=== PATIENT | female | born 1970 | race Caucasian/White ===

== ENCOUNTER 2016-12-17 21:14 | Emergency (ER) | payer OTHER ==
[~2016-12-17] VITALS: Ht 154.9 cm; Wt 111.1 kg
[~2016-12-17 21:14] MED LIST: DIVA250E1 PO; LISI5TAB18 PO; METF500T PO; SERT50TA PO; SIMV10TA1 PO; SITA25TA3 PO
[2016-12-17 21:33] VITALS: BP 125/86
--- NOTE | 2016-12-17 22:11 | NUR ---
TO ER BED 5
--- NOTE | 2016-12-17 22:31 | NUR ---
Patient being evaluated by physician at bedside.
--- NOTE | 2016-12-17 22:32 | NUR ---
PT STATES SHE WAS DISCHARGED YESTERDAY FROM HOSPITAL IN [place] AND RICHARD GAVE HERSELF INSULIN FOR THE FIRST TIME AND WAS JUST FEELING UNSURE OF HOW SHE WAS SUPPOSE TO BE FEELING AFTERWARDS AND WANTED TO BE SEEN BY DR. SEGURA. HX: PT HAD MINI STROKE/DIABETIC PT DENIES N/V/D; SKIN IS PINK/WARM/DRY; AAOX4 WITH EVEN AND STEADY GAIT; LUNGS CLEAR BL; HR EVEN AND REGULAR; PT DENIES ANY FEVER, CP, SOB, OR COUGH AT THIS TIME; PATIENT STATES PAIN OF 0/10 AT THIS TIME; VSS; PATIENT POSITIONED FOR COMFORT; HOB ELEVATED; BEDRAILS UP X2; BED DOWN. ER MD MADE AWARE OF PT STATUS.
[2016-12-17 22:51] LABS: BASOPHILS # (AUTO) 0.1 K/uL (0.00-0.22); BASOPHILS % (AUTO) 1.4 % (0.0-2.0); EOSINOPHILS # (AUTO) 0.2 K/uL (0-0.4); EOSINOPHILS % (AUTO) 3.3 % (0.0-4.0); HEMATOCRIT 42.2 % (36-48); HEMOGLOBIN 13.3 g/dL (12.0-16.0); LYMPHOCYTES # (AUTO) 1.5 K/uL (2.5-16.5); MEAN CORPUSCULAR HEMOGLOBIN 25 pg (27-31); MEAN CORPUSCULAR HGB CONC 32 g/dL (33-37); MEAN CORPUSCULAR VOLUME 79 fL (80-94); MONOCYTES # (AUTO) 0.4 K/uL (0.8-1.0); MONOCYTES % (AUTO) 6.3 % (1.7-9.3); NEUTROPHILS # (AUTO) 4.2 K/uL (1.8-7.7); PLATELET COUNT (AUTO) 203 K/uL (140-450); RED BLOOD CELL COUNT(AUTO) 5.31 MIL/uL (4.20-5.40); RED CELL DISTRIBUTION WIDTH 15.3 % (11.6-13.7); WHITE BLOOD COUNT (AUTO) 6.5 K/uL (4.8-10.8)
[2016-12-17 23:01] LABS: ANION GAP 11.2 (8-16); CARBON DIOXIDE 29.6 mmol/L (21-32); CREATININE 1.2 mg/dL (0.6-1.3); POTASSIUM 4.8 mmol/L (3.5-5.1)
--- NOTE | 2016-12-17 23:30 | NUR ---
Patient discharged with v/s stable. Written and verbal after care instructions given and explained. Patient verbalized understanding. Ambulatory with steady gait. All questions addressed prior to discharge. Advised to follow up with PMD.
[2016-12-17 23:46] VITALS: BP 105/67
== END 2016-12-17 23:30 | disposition home or self-care (01) ==
LOC: MED 21:14
DX: E11.9 Type 2 diabetes mellitus without complications (principal); E66.01 Morbid (severe) obesity due to excess calories; I10 Essential (primary) hypertension; Z68.42 Body mass index [BMI] 45.0-49.9, adult; Z86.73 Personal history of transient ischemic attack (TIA), and cerebral infarction without residual deficits; Z79.899 Other long term (current) drug therapy
CPT/HCPCS: 36415; 80048; 85025; 99284

== ENCOUNTER 2018-09-09 11:23 | Emergency (ER) | payer OTHER ==
[~2018-09-09] VITALS: Ht 157.5 cm; Wt 108.5 kg
[~2018-09-09 11:23] MED LIST changes: +ARIP15TA1 PO; +ASPI81CT89 PO; -DIVA250E1 PO; +DIVA500T1 PO; +LISI-420 PO; -LISI5TAB18 PO; +METF1000 PO; -METF500T PO; +SERT100T PO; -SERT50TA PO; +SITA100T8 PO; -SITA25TA3 PO; +VITD1000 PO
[2018-09-09 11:35] VITALS: BP 133/87
--- NOTE | 2018-09-09 11:47 | NUR ---
PT AMBULATED TO ER BED 01
[2018-09-09 12:06] LABS: BASOPHILS % (AUTO) 0.4 % (0.0-2.0); EOSINOPHILS # (AUTO) 0.2 K/uL (0-0.4); EOSINOPHILS % (AUTO) 2.4 % (0.0-4.0); HEMATOCRIT 39.7 % (36-48); HEMOGLOBIN 12.5 g/dL (12.0-16.0); LYMPHOCYTES # (AUTO) 1.4 K/uL (2.5-16.5); LYMPHOCYTES % (AUTO) 21.8 % (20.5-51.1); MEAN CORPUSCULAR HEMOGLOBIN 24 pg (27-31); MEAN CORPUSCULAR HGB CONC 32 g/dL (33-37); MEAN CORPUSCULAR VOLUME 75.8 fL (80-94); MONOCYTES # (AUTO) 0.3 K/uL (0.8-1.0); MONOCYTES % (AUTO) 4.8 % (1.7-9.3); NEUTROPHILS # (AUTO) 4.7 K/uL (1.8-7.7); NEUTROPHILS % (AUTO) 70.6 % (42.2-75.2); PLATELET COUNT (AUTO) 194 K/uL (140-450); RED BLOOD CELL COUNT(AUTO) 5.24 MIL/uL (4.20-5.40); RED CELL DISTRIBUTION WIDTH 17.8 % (11.6-13.7); WHITE BLOOD COUNT (AUTO) 6.6 K/uL (4.8-10.8)
[2018-09-09 12:39] LABS: ALBUMIN 3.4 g/dL (3.4-5.0); ANION GAP 9.9 (8-16); CARBON DIOXIDE 31.4 mmol/L (21-32); CREATININE 0.8 mg/dL (0.6-1.3); POTASSIUM 4.3 mmol/L (3.5-5.1); TOTAL BILIRUBIN 0.3 mg/dL (0.0-1.0)
--- NOTE | 2018-09-09 13:18 | NUR ---
PATIENT IS SLEEPING, NO ACUTE DISTRESS NOTED.
[2018-09-09 14:25] VITALS: BP 113/62
== END 2018-09-09 14:26 | disposition home or self-care (01) ==
LOC: MED 11:23
DX: R20.2 Paresthesia of skin (principal); Z86.73 Personal history of transient ischemic attack (TIA), and cerebral infarction without residual deficits; E11.9 Type 2 diabetes mellitus without complications; I10 Essential (primary) hypertension; Z79.82 Long term (current) use of aspirin; Z79.84 Long term (current) use of oral hypoglycemic drugs; Z79.899 Other long term (current) drug therapy
CPT/HCPCS: 36415; 70450; 80053; 85025; 93005; 99284

== ENCOUNTER 2021-10-12 03:55 | Emergency (ER) | payer OTHER ==
[~2021-10-12] VITALS: Ht 154.9 cm; Wt 129.3 kg
[~2021-10-12 03:55] MED LIST changes: +ASPI-1822 PO; -ASPI81CT89 PO; -LISI-420 PO; +LISI-487 PO
[2021-10-12 04:04] VITALS: BP 110/62
[2021-10-12] MEDS ORDERED: diphenhydrAMINE 50 MG CAP PO ONE (04:20)
[2021-10-12] MEDS ORDERED: ATA25 PO (05:20)
--- NOTE | 2021-10-12 05:34 | NUR ---
d/c with VSS. d/c education given. opportunity to ask questions given and answered. rx of atarax given.
== END 2021-10-12 05:34 | disposition home or self-care (01) ==
LOC: MED 03:55
DX: L23.89 Allergic contact dermatitis due to other agents (principal)
CPT/HCPCS: 99283; Q0163

== ENCOUNTER 2022-04-10 23:45 | Emergency (ER) | payer OTHER ==
[~2022-04-10] VITALS: Ht 152.4 cm; Wt 124.3 kg
[~2022-04-10 23:45] MED LIST changes: +ATA25 PO; +CHOL100084 PO; +METF-1274 PO; -METF1000 PO; -VITD1000 PO
[2022-04-10 23:49] VITALS: BP 149/82
--- NOTE | 2022-04-11 02:05 | NUR ---
Dr. Allen examining patient.
[2022-04-11] MEDS ORDERED: LID5T TP (02:12)
[2022-04-11] MEDS ORDERED: NAPR-1704 PO (02:12)
[2022-04-11] MEDS ORDERED: KETOROLAC 30 MG/ML VIAL IM ONE (02:15)
[2022-04-11 02:32] VITALS: BP 136/82
--- NOTE | 2022-04-11 02:32 | NUR ---
Patient discharged with v/s stable. Written and verbal after care instructions given and explained. Patient alert, oriented and verbalized understanding of instructions. Ambulatory with steady gait. All questions addressed prior to discharge. ID band removed. Patient advised to follow up with PMD. Rx of Lidocaine path and Naproxen given. Patient educated on indication of medication including possible reaction and side effects. Opportunity to ask questions provided and answered.
== END 2022-04-11 02:32 | disposition home or self-care (01) ==
LOC: MED 23:45
DX: M54.32 Sciatica, left side (principal); I10 Essential (primary) hypertension; E11.9 Type 2 diabetes mellitus without complications; Z79.4 Long term (current) use of insulin; Z79.899 Other long term (current) drug therapy; Z86.73 Personal history of transient ischemic attack (TIA), and cerebral infarction without residual deficits
CPT/HCPCS: 96372; 99283; J1885